=== PATIENT | male | born 1975 ===

== ENCOUNTER 2020-08-03 13:33 | Emergency (ER) | payer SELFPAY ==
[2020-08-03 14:12] VITALS: BP 137/101
--- NOTE | 2020-08-03 17:18 | Emergency Department Report ---
Upper Extremity - [facility] Chief Complaint: Extremity Injury, Upper Stated Complaint: WRIST INJURY RIGHT Time Seen by Provider: 08/03/20 16:26 Upper Extremity: Right Hand Occurred When: >5 Days Severity: moderate Symptoms: Yes Pain with Movement, Yes Deformity, Yes Swelling, Yes Bruising/Ecchymosis, No Limited Range of Movement, No Numbness, No Weakness Other History: 45-year-old male presents to the emergency room requesting a splint for his right hand where he fractured his right side of hand. X-ray he brings from [facility] shows that he has a comminuted fracture of the distal fifth metacarpal associated with soft tissue swelling. Patient states at that time they placed him in a splint and when he went to custodial for behavior issues they took the splint off. Patient states now he had got out of custodial and now is at a mental institution near the hospital. Patient also complains of a rash on both forearms that were once blisters are now a rash. Patient states that he is homeless and has stand outside too much where he got sunburned. Patient is a 101[address] at [place] brought in by [id number]. ED Review of Systems ROS: Stated complaint: WRIST INJURY RIGHT Other details as noted in HPI ED Past Medical Hx - Medications Home Medications: Home Medications Medication Instructions Recorded Confirmed Last Taken Type Ibuprofen [Motrin 600 MG tab] 600 mg PO Q8H PRN #30 tablet 08/03/20 Unknown Rx Triamcinolone 0.1% [Kenalog 0.1% 1 applic TP TID #1 tube 08/03/20 Unknown Rx CREAM] Upper Extremity Exam - Exam General: Vital signs noted. No distress. Alert and acting appropriately. Head and Torso: No HEENT Abnormality, No Neck Tenderness, No Chest/Lungs Abnormality, No Abdominal Tenderness, No Back Tenderness Shoulder Exam: Yes Normal Range of Motion in Shoulder, No Shoulder Tenderness, No Clavicle Tenderness, No Shoulder Deformity, No AC Joint Tenderness Arm Exam: No Arm/Humerus Tenderness, No Arm Deformity Elbow: No Elbow Tenderness, No Normal Range of Motion in Elbow, No Elbow Deformity Forearm: No Forearm Tenderness (Hyperpigmented dry flaky rash on both forearms), No Forearm Deformity, No Pain with Pronation, No Pain with Supination Wrist: Yes Normal ROM in Wrist, No Wrist Tenderness, No Wrist Deformity, No Snuffbox Tenderness, No Pain with Axial Thumb Compression Hand: Yes Hand Tenderness, Yes Hand Deformity, Yes Digit Tenderness CMS Exam: No Broken Skin, No Normal Distal Pulses, No Normal Capillary Refill, No Normal Distal Sensation ED Course Vital Signs 08/03/20 14:11 Temperature 98.6 F Pulse Rate 85 Respiratory 16 Rate Blood Pressure 137/101 [Left] O2 Sat by Pulse 100 Oximetry ED Medical Decision Making - Medical Decision Making 45-year-old male presents to the emergency room requesting a splint for his right hand where he fractured his right side of hand. X-ray he brings from [facility] shows that he has a comminuted fracture of the distal fifth metacarpal associated with soft tissue swelling. Patient states at that time they placed him in a splint and when he went to custodial for behavior issues they took the splint off. Patient states now he had got out of custodial and now is at a mental institution near the hospital. Patient also complains of a rash on both forearms that were once blisters are now a rash. Patient states that he is homeless and has stand outside too much where he got sunburned. Patient is a [address] at [place] brought in by [id number]. Rash patient be given a prescription for triamcinolone cream. Fracture right hand patient be placed in a boxer's splint. Ibuprofen prescription will be given. Referral to orthopedics. Critical care attestation.: If time is entered above; I have spent that time in minutes in the direct care of this critically ill patient, excluding procedure time. ED Disposition Clinical Impression: Fracture of fifth metacarpal bone of right hand, Rash and nonspecific skin eruption Disposition: - TO HOME OR SELFCARE Is pt being admited?: No Does the pt Need Aspirin: No Condition: Stable Instructions: Cast or Splint Care, Adult, [id number], Boxer's Fracture, Rash, Adult, [id number] Additional Instructions: Please wear splint and follow-up with an orthopedic provider. Ibuprofen for pain management. Triamcinolone cream to your rash. Prescriptions: Triamcinolone 0.1% [Kenalog 0.1% CREAM] 1 applic TP TID #1 tube Ibuprofen [Motrin 600 MG tab] 600 mg PO Q8H PRN #30 tablet PRN Reason: Pain Referrals: SHELLY KIMBROUGH MD [Staff Physician] - 3-5 Days
[2020-08-03] MEDS ORDERED: IBUPROFEN 600 MG TAB PO ONE (17:19)
== END 2020-08-03 18:00 | disposition home or self-care (01) ==
LOC: ED 13:33
DX: S62.396A Other fracture of fifth metacarpal bone, right hand, initial encounter for closed fracture (principal); R21 Rash and other nonspecific skin eruption; X58.XXXA Exposure to other specified factors, initial encounter; Y93.89 Activity, other specified; Y92.89 Other specified places as the place of occurrence of the external cause; Y99.8 Other external cause status
CPT/HCPCS: 99283